=== PATIENT | male | born 1960 | race Caucasian/White ===

== ENCOUNTER 2025-03-11 08:28 | Outpatient (CLI) | payer OTHER | END 2025-03-11 08:29 | disposition home or self-care (01) | LOC: CSHWCC 08:28 | PROVIDERS: ATTEND Nurse Practitioner Family | DX: I87.331 Chronic venous hypertension (idiopathic) with ulcer and inflammation of right lower extremity (principal); L97.312 Non-pressure chronic ulcer of right ankle with fat layer exposed; F19.10 Other psychoactive substance abuse, uncomplicated; Z72.0 Tobacco use | CPT/HCPCS: 11042 ==

== ENCOUNTER 2025-03-18 08:49 | Outpatient (CLI) | payer OTHER | END 2025-03-18 08:50 | disposition home or self-care (01) | LOC: CSHWCC 08:49 | PROVIDERS: ATTEND Nurse Practitioner Family | DX: I87.331 Chronic venous hypertension (idiopathic) with ulcer and inflammation of right lower extremity (principal); L97.312 Non-pressure chronic ulcer of right ankle with fat layer exposed; F19.10 Other psychoactive substance abuse, uncomplicated; Z72.0 Tobacco use | CPT/HCPCS: 11042 ==

== ENCOUNTER 2025-03-25 09:11 | Outpatient (CLI) | payer OTHER | END 2025-03-25 09:12 | disposition home or self-care (01) | LOC: CSHWCC 09:11 | PROVIDERS: ATTEND Nurse Practitioner Family | DX: I87.331 Chronic venous hypertension (idiopathic) with ulcer and inflammation of right lower extremity (principal); L97.312 Non-pressure chronic ulcer of right ankle with fat layer exposed; F19.10 Other psychoactive substance abuse, uncomplicated; Z72.0 Tobacco use | CPT/HCPCS: 11042 ==

== ENCOUNTER 2025-04-01 11:50 | Outpatient (CLI) | payer OTHER | END 2025-04-01 11:51 | disposition home or self-care (01) | LOC: CSHWCC 11:50 | PROVIDERS: ATTEND Nurse Practitioner Family | DX: I87.331 Chronic venous hypertension (idiopathic) with ulcer and inflammation of right lower extremity (principal); L97.312 Non-pressure chronic ulcer of right ankle with fat layer exposed; F19.10 Other psychoactive substance abuse, uncomplicated; Z72.0 Tobacco use | CPT/HCPCS: 11042 ==

== ENCOUNTER 2025-04-08 08:53 | Outpatient (CLI) | payer OTHER | END 2025-04-08 08:54 | disposition home or self-care (01) | LOC: CSHWCC 08:53 | PROVIDERS: ATTEND Nurse Practitioner Family | DX: I87.331 Chronic venous hypertension (idiopathic) with ulcer and inflammation of right lower extremity (principal); L97.312 Non-pressure chronic ulcer of right ankle with fat layer exposed; F19.10 Other psychoactive substance abuse, uncomplicated; Z72.0 Tobacco use | CPT/HCPCS: 11042 ==

== ENCOUNTER 2025-04-11 10:36 | Outpatient (CLI) | payer OTHER | END 2025-04-11 10:37 | disposition home or self-care (01) | LOC: CSHWCC 10:36 | PROVIDERS: ATTEND Nurse Practitioner Family | DX: I87.331 Chronic venous hypertension (idiopathic) with ulcer and inflammation of right lower extremity (principal); L97.312 Non-pressure chronic ulcer of right ankle with fat layer exposed; F19.10 Other psychoactive substance abuse, uncomplicated; Z72.0 Tobacco use | CPT/HCPCS: 99211; G0463 ==

== ENCOUNTER 2025-04-15 08:36 | Outpatient (CLI) | payer OTHER | END 2025-04-15 08:37 | disposition home or self-care (01) | LOC: CSHWCC 08:36 | PROVIDERS: ATTEND Nurse Practitioner Family | DX: I87.331 Chronic venous hypertension (idiopathic) with ulcer and inflammation of right lower extremity (principal); L97.312 Non-pressure chronic ulcer of right ankle with fat layer exposed; F19.10 Other psychoactive substance abuse, uncomplicated; Z72.0 Tobacco use | CPT/HCPCS: 11042 ==

== ENCOUNTER 2025-04-23 08:23 | Outpatient (CLI) | payer OTHER | END 2025-04-23 08:24 | disposition home or self-care (01) | LOC: CSHWCC 08:23 | PROVIDERS: ATTEND Nurse Practitioner Family | DX: I87.331 Chronic venous hypertension (idiopathic) with ulcer and inflammation of right lower extremity (principal); L97.312 Non-pressure chronic ulcer of right ankle with fat layer exposed; F19.10 Other psychoactive substance abuse, uncomplicated; Z72.0 Tobacco use | CPT/HCPCS: 11042 ==

== ENCOUNTER 2025-04-29 08:41 | Outpatient (CLI) | payer OTHER | END 2025-04-29 08:42 | disposition home or self-care (01) | LOC: CSHWCC 08:41 | PROVIDERS: ATTEND Nurse Practitioner Family | DX: I87.331 Chronic venous hypertension (idiopathic) with ulcer and inflammation of right lower extremity (principal); L97.312 Non-pressure chronic ulcer of right ankle with fat layer exposed; F19.10 Other psychoactive substance abuse, uncomplicated; Z72.0 Tobacco use | CPT/HCPCS: 11042 ==

== ENCOUNTER 2025-05-06 08:25 | Outpatient (CLI) | payer OTHER | END 2025-05-06 08:26 | disposition home or self-care (01) | LOC: CSHWCC 08:25 | PROVIDERS: ATTEND Nurse Practitioner Family | DX: I87.331 Chronic venous hypertension (idiopathic) with ulcer and inflammation of right lower extremity (principal); L97.312 Non-pressure chronic ulcer of right ankle with fat layer exposed; F19.10 Other psychoactive substance abuse, uncomplicated; Z72.0 Tobacco use | CPT/HCPCS: 11042 ==

== ENCOUNTER 2025-05-13 08:51 | Outpatient (CLI) | payer OTHER | END 2025-05-13 08:52 | disposition home or self-care (01) | LOC: CSHWCC 08:51 | PROVIDERS: ATTEND Nurse Practitioner Family | DX: I87.331 Chronic venous hypertension (idiopathic) with ulcer and inflammation of right lower extremity (principal); L97.312 Non-pressure chronic ulcer of right ankle with fat layer exposed; F19.10 Other psychoactive substance abuse, uncomplicated; Z72.0 Tobacco use | CPT/HCPCS: 11042 ==

== ENCOUNTER 2025-05-20 08:26 | Outpatient (CLI) | payer OTHER | END 2025-05-20 08:27 | disposition home or self-care (01) | LOC: CSHWCC 08:26 | PROVIDERS: ATTEND Nurse Practitioner Family | DX: I87.331 Chronic venous hypertension (idiopathic) with ulcer and inflammation of right lower extremity (principal); L97.312 Non-pressure chronic ulcer of right ankle with fat layer exposed; F19.10 Other psychoactive substance abuse, uncomplicated; Z72.0 Tobacco use | CPT/HCPCS: 11042 ==

== ENCOUNTER 2025-05-30 09:11 | Outpatient (CLI) | payer OTHER | END 2025-05-30 09:12 | disposition home or self-care (01) | LOC: CSHWCC 09:11 | PROVIDERS: ATTEND Nurse Practitioner Family | DX: I87.331 Chronic venous hypertension (idiopathic) with ulcer and inflammation of right lower extremity (principal); L97.312 Non-pressure chronic ulcer of right ankle with fat layer exposed; F19.10 Other psychoactive substance abuse, uncomplicated; Z72.0 Tobacco use | CPT/HCPCS: 29581 ==

== ENCOUNTER 2025-06-03 08:11 | Outpatient (CLI) | payer OTHER | END 2025-06-03 08:12 | disposition home or self-care (01) | LOC: CSHWCC 08:11 | PROVIDERS: ATTEND Nurse Practitioner Family | DX: I87.331 Chronic venous hypertension (idiopathic) with ulcer and inflammation of right lower extremity (principal); L97.312 Non-pressure chronic ulcer of right ankle with fat layer exposed; L08.9 Local infection of the skin and subcutaneous tissue, unspecified; F19.10 Other psychoactive substance abuse, uncomplicated; Z72.0 Tobacco use | CPT/HCPCS: 11042 ==